=== PATIENT | male | born 1995 ===

== ENCOUNTER 2016-09-14 19:47 | Emergency (ER) | payer OTHER ==
[~2016-09-14] VITALS: Ht 172.7 cm; Wt 64.3 kg
[2016-09-14 19:50] VITALS: TEMP 36.5; Ht 172.7 cm; Wt 64.3 kg
[2016-09-14] MEDS ORDERED: XYLOCAINE 1%/SOD BICARB 20 ML VIAL INFIL STA (20:18)
--- NOTE | 2016-09-14 20:23 | EMERGENCY ROOM VISIT NOTE ---
History Report prepared by Kimberlyibe: Cris Rodriguez Under the Supervision of: Dr. Gregorio Paez M.D. First contact with patient: 20:13 Chief Complaint: LACERATION/CUT (SUT/DERMABOND) Stated Complaint: R HAND LACERATION,GLASS IN HAND Nursing Triage Summary: pt had right arm go through a windown, lac to right forearm History of Present Illness The patient is a 21 year old male who presents to the Emergency Room with complaints of a laceration to his right forearm. He is accompanied by 2 friends. The patient reports his right arm went through a window at a [employer] earlier this evening. He states he feels like there is still "something in the wound", "like a piece of glass or something". Movement worsens his pain. He is unsure when his last Tetanus injection was but thinks it was within the last 10 years. The patient admits to drinking alcohol earlier today. His friends deny him hitting his head at all today. The patient denies any other complaints at today's visit. Source of History: patient Onset: DIRECTOR OF MANUFACTURING Position: arm (right) Quality: other (laceration) Timing: resolved Modifying Factors (Worsening): movement Review of Systems See HPI for pertinent positives & negatives. A total of 10 systems reviewed and were otherwise negative. Past Medical & Surgical Medical Problems: (1) No significant past medical history Family History No significant family history Social History Smoking Status: Never Smoker Alcohol Use: occasionally Drug Use: none Marital Status: single Housing Status: lives with roommate Occupation Status: [employer] student Current/Historical Medications No Active Prescriptions or Reported Meds Allergies Coded Allergies: No Known Allergies (Unverified , 09/14/16) Physical Exam Vital Signs Date Time Temp Pulse Resp B/P Pulse Ox O2 Delivery O2 Flow Rate FiO2 09/14/16 21:35 98 16 124/82 98 09/14/16 19:50 36.5 120 18 122/83 93 Room Air Physical Exam GENERAL: Patient is a healthy-appearing, well-nourished 21 year old male. He is clinically intoxicated with a strong smell of alcohol on his breath. He is slurring his words. HEAD: Normocephalic atraumatic EYES: Horizontal nystagmus. Pupils equal and react to light OROPHARYNX mucous membranes are moist no exudates present no erythema or edema present NECK: Supple no nuchal rigidity CHEST: Good equal expansion LUNGS: Clear and equal to auscultation CARDIAC: Normal S1 and S2 ABDOMEN: Soft nontender no guarding BACK: No CVA tenderness EXTREMITIES: 2 lacerations over the DIP joint right thumb, both 2.6 cm length, simple linear. They do not involve any tendon, no evidence of tendon injury, good ROM of the thumb, good feeling of the thumb. Puncture wound to the mid shaft of right forearm. No pain upon palpation normal muscle strength in all groups no clubbing cyanosis or edema NEURO: Patient is following commands is answering questions appropriately. Alert and oriented x3 Cranial Nerves 2-12 grossly intact Medical Decision & Procedures ER Provider Diagnostic Interpretation: These X-Rays were reviewed and interpreted by myself and the radiologist. RIGHT FINGER(S) MIN 2 VIEWS ROUTINE IMPRESSION: No acute fracture or radiopaque foreign body within the right thumb. Electronically signed by: David Ibrahim M.D. 09/14/2016 9:14 PM RIGHT FOREARM 2 VIEWS ROUTINE IMPRESSION: 1. No radiopaque foreign body within the right forearm. 2. No acute fracture of the right radius or ulna. Electronically signed by: David Ibrahim M.D. 09/14/2016 9:12 PM Procedure Location: Right thumb Total length: 2.6 cm Complexity: Simple Verbal consent was obtained after the risks and benefits were explained, including but not limited to bleeding, scarring, infection, pain, and bone/joint /nerve damage. At this time, the risks of the procedure are less than the risks of NOT performing the procedure. A time out was taken and the correct patient and site identified. The skin was prepped with betadine. The target area was anesthetized with 4 ml of 1% lidocaine without epinephrine. Copious irrigation was performed using NSS. The skin was re-prepped with betadine and a sterile field set. The wound was explored for foreign bodies and none found. Examination revealed no injury to deep structures such as tendons, bone, or significant blood vessels. Debridement was not performed. The wound edges were approximated using 5, 4-0 simple interrupted nylon sutures. Hemostasis and excellent approximation was achieved. Antibacterial ointment and a sterile dressing applied. Detailed wound care instructions and signs and symptoms of infection reviewed with the patient. No complications and the patient tolerated the procedure well. ED Course 2013: Past medical records reviewed. The patient was evaluated in room D3. A complete history and physical examination was performed. 2018: Lidocaine HCl 20 ml INFIL. 2034: I offered to call the patients parents, but he declined. 2129: I reevaluated the patient. He is feeling well. I discussed his results and discharge instructions and he verbalized complete understanding and agreement. 2134: The patient called his parents and informed them that he is in the ED. 2139: I spent 15 minutes on the phone with the patients Aunt, who is a Nurse Practitioner, with the permission of the patient. She would like an alcohol level be drawn on the patient. The patient refused this. I explained to his Aunt that I probed his wound manually and via X-Ray. Neither attempt produced any evidence of foreign body. I explained the importance of the patient following up with surgery on Friday, if he still has the foreign body sensation in his arm, and that he needs to watch for signs of infection until then. She verbalized complete understanding. Medical Decision This is a 21-year-old male who presents emergency department complaining of foreign body sensation to the mid forearm from a puncture wound. The patient punched a glass window. He states his tetanus is up-to-date. I will note the patient is clinically intoxicated. He at first would not allow me to look at his right hand. His right thumb is neurovascularly intact and there does not appear to be any evidence of tendon involvement. He is insistent that there is something in his forearm. There is a very small puncture wound here. This area was cleansed with Betadine and gently probed. In addition it was heavily irrigated with normal saline. No evidence of foreign body could be found and I cannot palpate any foreign body on examination. In addition the patient was sent for x-rays of his forearm and his thumb, these did not show any evidence of radio opaque material. It was explained to the patient 3 times that he needs to follow-up with a surgeon if he continues to have the foreign body sensation. As the patient was not comprehending this I offered to call the patient's parents and speak with them. The patient refused this. At the time of discharge the patient's aunt called to speak with me. after receiving permission from the patient to speak with the aunt the patient then told me that this was actually not his aunt. I then revealed verified who his aunt was and the patient again gave me permission to speak with her. I explained everything that has been done to the patient up to this point. His aunt is requesting an alcohol level be drawn however the patient is adamantly refusing this. It is also asking if antibiotics should be started however I stressed that this would not treat a foreign body and that if the patient still felt the sensation he needed follow-up with the surgeon. I will note that the patient and his 2 friends trashed the room they were staying in by dumping water on the floor and the patient allowing himself to bleed all over the place even though he was given gauze pads to stop the bleeding prior to the physician arriving. I again reviewed the signs and symptoms of infection with both the aunt and the patient and recommended that the patient return to the emergency department if he develops any of the signs to the puncture area. Impression Primary Impression: Sensation of foreign body in skin Additional Impression: Laceration of multiple sites of arm Scribe Attestation The scribe's documentation has been prepared under my direction and personally reviewed by me in its entirety. I confirm that the note above accurately reflects all work, treatment, procedures, and medical decision making performed by me. Departure Information Dispostion Home / Self-Care Prescriptions No Active Prescriptions or Reported Meds Referrals No Doctor, Assigned (PCP) Patient Instructions ED Foreign Body Soft Tissue, ED Laceration Ext Sutr Stap Tape, [facility] Additional Instructions Follow up with DR Presley's office for continued foreign body sensation Apply bacitracin to wounds twice a day Sutures out in 10 days You have been examined and treated today on an emergency basis only. This is not a substitute for, or an effort to provide, complete comprehensive medical care. It is impossible to recognize and treat all injuries or illnesses in a single emergency department visit. It is therefore important that you follow up closely with [facility]. Call as soon as possible for an appointment. Thank you for your time and consideration. I look forward to speaking with you again soon. Please don't hesitate to call us if you have any questions. Problem Qualifiers Additional Impression: Laceration of multiple sites of arm Encounter type: initial encounter Laterality: right Qualified Codes: S41.111A - Laceration without foreign body of right upper arm, initial encounter
[2016-09-14] MEDS ORDERED: XYLOCAINE 1%/SOD BICARB 20 ML VIAL INFIL ONE (20:24)
--- NOTE | 2016-09-14 21:14 | DIAGNOSTIC IMAGING REPORT ---
RIGHT FOREARM 2 VIEWS ROUTINE CLINICAL HISTORY: Possible foreign body. COMPARISON: None FINDINGS: No acute fracture of the right radius or ulna is identified. There is soft tissue gas within the mid right forearm. No radiopaque foreign body is identified. IMPRESSION: 1. No radiopaque foreign body within the right forearm. 2. No acute fracture of the right radius or ulna. Electronically signed by: David Ibrahim M.D. 09/14/2016 9:12 PM Dictated Date/Time: 09/14/2016 9:11 PM
--- NOTE | 2016-09-14 21:16 | DIAGNOSTIC IMAGING REPORT ---
RIGHT FINGER(S) MIN 2 VIEWS ROUTINE CLINICAL HISTORY: Right thumb laceration. COMPARISON: None FINDINGS: Alignment of the right thumb is anatomic. No acute fracture or radiopaque foreign body is identified. A bandage on the right thumb is noted. IMPRESSION: No acute fracture or radiopaque foreign body within the right thumb. Electronically signed by: David Ibrahim M.D. 09/14/2016 9:14 PM Dictated Date/Time: 09/14/2016 9:12 PM
[2016-09-14 21:35] VITALS: BP 124/82; PULSE 98; O2SAT 98
== END 2016-09-14 21:40 | disposition home or self-care (01) ==
LOC: C.EDB 19:50 → C.EDD 21:40
DX: S41.111A Laceration without foreign body of right upper arm, initial encounter (principal); W45.8XXA Other foreign body or object entering through skin, initial encounter